=== PATIENT | female | born 1970 | race Caucasian/White ===

== ENCOUNTER → 2019-01-05 | Outpatient (CLI) | payer MEDICAID ==
--- NOTE | 2019-01-06 10:45 | Diagnostic Imaging Report ---
Indication: Routine screening. Comparison is made with prior mammograms from 12/21/2017 and 10/19/2016. 2-D and 3-D bilateral screening mammography was performed with CAD. Scattered fibroglandular densities are identified bilaterally. Bilateral breast implants are noted. Biopsy clip left breast is again seen. Nodular density medial left breast lung implant is stable. Overall parenchymal pattern is stable. No new mass or malignant- appearing microcalcifications are seen. Axillae are unremarkable. Impression: BI-RADS category 2 No mammographic features suspicious for malignancy are identified. ACR BI-RADS Category 2: Benign findings. Result letter will be mailed to the patient. Note: At least 10% of breast cancer is not imaged by mammography. Dictated by: Dictated on workstation # [id number]
== END ==
LOC: RAD 14:58
PROVIDERS: ATTEND Nurse Practitioner
DX: Z12.31 Encounter for screening mammogram for malignant neoplasm of breast (principal); Z01.419 Encounter for gynecological examination (general) (routine) without abnormal findings; E66.3 Overweight; Z68.25 Body mass index [BMI] 25.0-25.9, adult
CPT/HCPCS: 77067

== ENCOUNTER → 2020-04-02 | Outpatient (CLI) | payer BC, MEDICAID, OTHER ==
--- NOTE | 2020-04-02 17:02 | Diagnostic Imaging Report ---
INDICATION: Routine screening. COMPARISON: 01/05/2019 and 12/21/2017. TECHNIQUE: 2D and 3D bilateral screening mammography was performed with CAD. Both breasts are heterogeneously dense, limiting the sensitivity of mammography. Bilateral breast implants are noted. The implant contours appear stable. A biopsy clip in the left breast is again noted. The parenchymal pattern appears stable. No mass or malignant appearing microcalcifications are seen. The axillae are unremarkable. IMPRESSION: No mammographic features suspicious for malignancy are identified. ACR BI-RADS Category 2: Benign findings. Result letter will be mailed to the patient. Note: At least 10% of breast cancer is not imaged by mammography. Dictated by: Dictated on workstation # [id number]
== END ==
LOC: RAD 14:04
PROVIDERS: ATTEND Nurse Practitioner
DX: Z12.31 Encounter for screening mammogram for malignant neoplasm of breast (principal)
CPT/HCPCS: 77063; 77067

== ENCOUNTER 2020-07-19 23:23 | Observation (INO) | payer OTHER ==
[~2020-07-19] VITALS: Ht 172.7 cm; Wt 75.0 kg
[2020-07-19] MEDS ORDERED: NS IV 1000 ML 1,000 ML IV SCH (23:47)
[2020-07-19 23:54] LABS: BASOPHILS % (AUTO) 1 % (0-10); EOSINOPHILS # (AUTO) 0.2 10^3/uL (0.0-0.3); EOSINOPHILS % (AUTO) 4 % (0-10); HEMATOCRIT 37 % (35-52); HEMOGLOBIN 12.4 g/dL (11.5-16.0); LYMPHOCYTES # (AUTO) 2.8 10^3/uL (1.0-4.0); LYMPHOCYTES % (AUTO) 47 % (12-44); MEAN CORPUSCULAR HEMOGLOBIN 33 pg (25-34); MEAN CORPUSCULAR HGB CONC 34 g/dL (32-36); MEAN CORPUSCULAR VOLUME 97 fL (80-99); MEAN PLATELET VOLUME 10.5 fL (9.0-12.2); MONOCYTES # (AUTO) 0.5 10^3/uL (0.0-1.0); MONOCYTES % (AUTO) 9 % (0-12); NEUTROPHILS # (AUTO) 2.4 10^3/uL (1.8-7.8); NEUTROPHILS % (AUTO) 40 % (42-75); PLATELET COUNT 234 10^3/uL (130-400)
[2020-07-19 23:55] LABS: ALBUMIN 4.7 GM/DL (3.2-4.5); CHLORIDE 102 MMOL/L (98-107); POTASSIUM 2.9 MMOL/L (3.6-5.0); SODIUM 137 MMOL/L (135-145)
[2020-07-19 23:57] LABS: CALCIUM 8.5 MG/DL (8.5-10.1)
[2020-07-19 23:58] LABS: GLUCOSE 114 MG/DL (70-105); INR 0.8 (0.8-1.4); PROTHROMBIN TIME PATIENT 11.9 SEC (12.2-14.7)
[2020-07-19 23:59] LABS: CARBON DIOXIDE 19 MMOL/L (21-32)
[2020-07-20] LABS: BILIRUBIN,TOTAL 0.2 MG/DL (0.1-1.0)
[2020-07-20] MEDS ORDERED: TETANUS,DIPTH,PERTUSS P/F (BOOSTRIX) 0.5 ML VIAL IM ONE
[2020-07-20] MEDS ORDERED: ONDANSETRON 4 MG/2 ML (SDV) Z0FRAN IVP ONE
[2020-07-20 00:01] LABS: ALKALINE PHOSPHATASE 54 U/L (40-136)
[2020-07-20 00:02] LABS: CREATININE SERUM 0.84 MG/DL (0.60-1.30)
[2020-07-20 00:03] LABS: BUN/CREATININE RATIO 11; GFR ESTIMATED > 60
[2020-07-20 00:05] LABS: ALANINE AMINOTRANSFERASE 19 U/L (0-55)
[2020-07-20] MEDS ORDERED: 1/2 NS W/KCL 20 MEQ/L 1,000 ML IV SCH (00:15)
[2020-07-20] MEDS ORDERED: LORazepam INJ 2 MG/ML (ATIVAN) VIAL IVP ONE (00:30)
[2020-07-20 01:06] LABS: AMPHETAMINE SCREEN, URINE NEGATIVE (NEGATIVE); BARBITURATE SCREEN URINE NEGATIVE (NEGATIVE); BENZODIAZEPINES SCREEN URINE NEGATIVE (NEGATIVE); CANNABINOID SCREEN, URINE NEGATIVE (NEGATIVE); COCAINE SCREEN URINE NEGATIVE (NEGATIVE); METHADONE STAT NEGATIVE (NEGATIVE); METHAMPHETAMINE SCREEN URINE S NEGATIVE (NEGATIVE); OPIATE SCREEN URINE NEGATIVE (NEGATIVE); OXYCODONE STAT NEGATIVE (NEGATIVE); PROPOXYPHENE STAT NEGATIVE (NEGATIVE); TRICYCLIC ANTIDEPRESSANTS SCRE NEGATIVE (NEGATIVE)
[2020-07-20] MEDS ORDERED: AMMONIA INHALATION 0.33 ML AMP ONE (01:10)
--- NOTE | 2020-07-20 01:41 | ED General ---
General Chief Complaint: Trauma-Non Activation Stated Complaint: FALL,HEAD LAC Nursing Triage Note: REPORT FROM DAUGHTER STATES PATIENT WAS FOUND OUTSIDE THE [address] [place] [address] AND IT APPEARED SHE HAD FALLEN HITTING HER HEAD ON THE LEFT EYEBROW. PATIENT WAS NOT CONCIOUS WHEN FOUND. EMS WAS CALLED AND THEN DECLINED. PATIENT ARRIVES POV PER DAUGHTER. BROUGHT BACK TO ROOM 6 IN A WHEELCHAIR. Nursing Sepsis Screen: No Definite Risk Exam Limitations: Intoxication (PT IS VERY CONFUSED, APPEARS INTOXICATED AND IS UNABLE TO GIVE ANY INFORMATION) History of Present Illness Date Seen by Provider: Jul 19, 2020 Time Seen by Provider: 23:40 Initial Comments PT ARRIVES VIA POV--DAUGHTER BROUGHT HER HERE--BROUGHT TO ROOM IN WHEELCHAIR--PT IS UNABLE TO STAND ON HER OWN PT WAS FOUND UNCONSCIOUS, LAYING OUTSIDE OF LOCAL BAR. IS UNKNOWN HOW LONG SHE HAD BEEN LAYING THERE, AND THERE WERE NO WITNESSES TO THE INCIDENT PT WAS WAKENED BY BYSTANDERS AT SOME POINT, AND EMS WAS CALLED TO THE SCENE, BUT PT REFUSED TRANSPORT. DAUGHTER THEN BROUGHT HER HERE BY POV PT HAS REPORTEDLY BEEN DRINKING HEAVILY, BUT IS UNKNOWN HOW MUCH SHE HAS HAD TO DRINK PT HAS LACERATION TO LEFT BROW AREA, AND IS BELIEVED SHE FELL AND HIT HER HEAD PT IS CONFUSED, AND SPEECH IS VERY HEAVILY SLURRED AND NON-SENSICAL. PT IS UNABLE TO FOLLOW ANY COMMANDS, OR ANSWER ANY QUESTIONS RELIABLY. NO OTHER INFORMATION IS OBTAINABLE. CERVICAL COLLAR IMMEDIATELY PLACED ON PT Location Injury Occurred: [address] [place] [address] Allergies and Home Medications Allergies Coded Allergies: Sulfa (Sulfonamide Antibiotics) (Verified Allergy, Unknown, 07/19/20) Patient Home Medication List Home Medication List Reviewed: Yes Review of Systems Review of Systems Constitutional: other (PT UNABLE TO ANSWER ANY QUESTIONS) Past Mqeogds-Vcggkz-Sygiiz Hx Past Med/Social Hx: Reviewed and Corrections made Patient Social History Alcohol Use: Regular Use Recreational Drug Use: No Smoking Status: Current Everyday Smoker Type Used: Cigarettes 2nd Hand Smoke Exposure: No Recent Foreign Travel: No Contact w/Someone Who Travel: No Recent Infectious Disease Expo: No Recent Hopitalizations: No Immunizations Up To Date Date of Influenza Vaccine: Jun 18, 2020 Seasonal Allergies Seasonal Allergies: No Past Medical History Surgeries: No Respiratory: No Cardiac: No Neurological: No : No CRTS History: Menopausal Genitourinary: No Gastrointestinal: No Musculoskeletal: No Endocrine: No HEENT: No Cancer: No Psychosocial: No Integumentary: No Blood Disorders: No Physical Exam Vital Signs Vital Signs - First Documented 07/19/20 07/20/20 07/20/20 23:27 02:17 03:00 Temp 35.8 Pulse 81 Resp 20 B/P (MAP) 147/94 (111) Pulse Ox 100 O2 Delivery OxyMask O2 Flow Rate 15.00 Capillary Refill : Less Than 3 Seconds Height, Weight, BMI Height: 5'8.00" Weight: 150lbs. oz. 68.743618fn; 24.00 BMI Method: General Appearance: Other (REEKS OF ETOH, SPEECH HEAVILY SLURRED, TALKING NON- STOP BUT IS MOSTLY NON-SENSICAL OR NON-RELEVANT, REPEATING QUESTIONS. PT IS DISORIENTED TO PLACE, TIME, SITUATION. ) HEENT: PERRL/EOMI, Other (HAS SMALL SUPERFICIAL LACERATION TO LEFT LATERAL BROW AREA, WITH MILD BRUISING AND SWELLING. HAS VERY MINOR ABRASION TO PINNA OF LEFT EAR. NO BLEEDING FROM NOSE OR MOUTH. NO EVIDENCE OF DENTAL INJURY. ) Neck: Normal Inspection Respiratory: Chest Non Tender, Normal Breath Sounds, No Accessory Muscle Use, No Respiratory Distress Cardiovascular: Regular Rate, Rhythm, No Edema, No JVD, No Murmur, Normal Peripheral Pulses Gastrointestinal: Non Tender, Soft Back: No CVA Tenderness, No Vertebral Tenderness Extremity: Normal Inspection, Normal Range of Motion, Non Tender, No Pedal Edema Neurologic/Psychiatric: Other (APPEARS TO BE INTOXICATED, PT IS CONFUSED, SPEECH IS HEAVILY SLURRED, REPEATING QUESTIONS, ORIENTED TO PERSON ONLY. PT IS UNABLE TO ANSWER MOST QUESTIONS AND IS UNABLE TO FOLLOW ANY COMMANDS, PT IS BELLIGERENT AND VERY UNCOOPERATIVE AND COMBATIVE AT TIMES. PT REFUSES TO STAY ON THE ER CART, TRYING TO LEAVE. ) Skin: Normal Color, Cool, Ecchymosis, Other (ABRASIONS/SUPERFICIAL LACERATIONS NOTED ABOVE) Progress/Results/Core Measures Suspected Sepsis Recent Fever Within 48 Hours: No Infection Criteria Present: None New/Unexplained Altered Menta: No Sepsis Screen: No Definite Risk SIRS Temperature: Pulse: 81 Respiratory Rate: 20 Laboratory Tests 07/19/20 23:37: White Blood Count 6.0 07/20/20 03:10: White Blood Count 4.0L Blood Pressure 147 /94 Mean: 111 Laboratory Tests 07/19/20 23:37: Creatinine 0.84, INR Comment 0.8, Platelet Count 234, Total Bilirubin 0.2 07/20/20 03:10: Creatinine 0.82, INR Comment 0.9, Platelet Count 230, Total Bilirubin 0.2 Results/Orders Lab Results Laboratory Tests Test 07/19/20 00:45 07/19/20 23:37 07/20/20 03:10 Range/Units Urine Opiates Screen NEGATIVE NEGATIVE Urine Oxycodone Screen NEGATIVE NEGATIVE Urine Methadone Screen NEGATIVE NEGATIVE Urine Propoxyphene Screen NEGATIVE NEGATIVE Urine Barbiturates Screen NEGATIVE NEGATIVE Ur Tricyclic Antidepressants Screen NEGATIVE NEGATIVE Urine Phencyclidine Screen NEGATIVE NEGATIVE Urine Amphetamines Screen NEGATIVE NEGATIVE Urine Methamphetamines Screen NEGATIVE NEGATIVE Urine Benzodiazepines Screen NEGATIVE NEGATIVE Urine Cocaine Screen NEGATIVE NEGATIVE Urine Cannabinoids Screen NEGATIVE NEGATIVE White Blood Count 6.0 4.0 L 4.3-11.0 10^3/uL Red Blood Count 3.80 4.01 3.80-5.11 10^6/uL Hemoglobin 12.4 13.1 11.5-16.0 g/dL Hematocrit 37 40 35-52 % Mean Corpuscular Volume 97 99 80-99 fL Mean Corpuscular Hemoglobin 33 33 25-34 pg Mean Corpuscular Hemoglobin Concent 34 33 32-36 g/dL Red Cell Distribution Width 12.7 12.9 10.0-14.5 % Platelet Count 234 230 130-400 10^3/uL Mean Platelet Volume 10.5 11.3 9.0-12.2 fL Immature Granulocyte % (Auto) 0 0 % Neutrophils (%) (Auto) 40 L 56 42-75 % Lymphocytes (%) (Auto) 47 H 35 12-44 % Monocytes (%) (Auto) 9 5 0-12 % Eosinophils (%) (Auto) 4 2 0-10 % Basophils (%) (Auto) 1 1 0-10 % Neutrophils # (Auto) 2.4 2.2 1.8-7.8 10^3/uL Lymphocytes # (Auto) 2.8 1.4 1.0-4.0 10^3/uL Monocytes # (Auto) 0.5 0.2 0.0-1.0 10^3/uL Eosinophils # (Auto) 0.2 0.1 0.0-0.3 10^3/uL Basophils # (Auto) 0.0 0.0 0.0-0.1 10^3/uL Immature Granulocyte # (Auto) 0.0 0.0 0.0-0.1 10^3/uL Prothrombin Time 11.9 L 12.5 12.2-14.7 SEC INR Comment 0.8 0.9 0.8-1.4 Activated Partial Thromboplast Time 29 28 24-35 SEC Sodium Level 137 143 135-145 MMOL/L Potassium Level 2.9 L 4.7 3.6-5.0 MMOL/L Chloride Level 102 109 H 98-107 MMOL/L Carbon Dioxide Level 19 L 19 L 21-32 MMOL/L Anion Gap 16 H 15 H 5-14 MMOL/L Blood Urea Nitrogen 9 9 7-18 MG/DL Creatinine 0.84 0.82 0.60-1.30 MG/DL Estimat Glomerular Filtration Rate > 60 > 60 BUN/Creatinine Ratio 11 11 Glucose Level 114 H 108 H 70-105 MG/DL Calcium Level 8.5 8.0 L 8.5-10.1 MG/DL Corrected Calcium 7.7 L 8.5-10.1 MG/DL Total Bilirubin 0.2 0.2 0.1-1.0 MG/DL Aspartate Amino Transf (AST/SGOT) 24 40 H 5-34 U/L Alanine Aminotransferase (ALT/SGPT) 19 19 0-55 U/L Alkaline Phosphatase 54 52 40-136 U/L Total Protein 8.0 8.2 6.4-8.2 GM/DL Albumin 4.7 H 4.4 3.2-4.5 GM/DL Serum Alcohol 367 *H 311 *H <10 MG/DL My Orders Orders - WARREN PRETTY DO Ct Head/Face/Cervical Wo (07/19/20 23:41) Ondansetron Injection (Zofran Injectio (07/20/20 00:00) Alcohol (07/19/20 23:47) Cbc With Automated Diff (07/19/20 23:47) Comprehensive Metabolic Panel (07/19/20 23:47) Drug Screen Stat (Urine) (07/19/20 23:47) Protime With Inr (07/19/20 23:47) Partial Thromboplastin Time (07/19/20 23:47) Ed Iv/Invasive Line Start (07/19/20 23:47) Ns Iv 1000 Ml (Sodium Chloride 0.9%) (07/19/20 23:47) Dipht,Pertuss(Acell),Tet Adult (Boostrix (07/20/20 00:00) Chest 1 View, Ap/Pa Only (07/20/20 00:01) Pelvis (07/20/20 00:01) 1/2 Ns W/Kcl 20 Meq/L (0.45% Sodium Chlo (07/20/20 00:15) Lorazepam Injection (Ativan Injection) (07/20/20 00:30) Ammonia Inhalation (Ammonia Inhalation) (07/20/20 01:10) Medications Given in ED Current Medications Medications Dose Ordered Sig/Bianca Route Start Time Stop Time Status Last Admin Dose Admin Diphtheria/ Tetanus/Acell Pertussis 0.5 ml ONCE ONCE IM 07/20/20 00:00 07/20/20 00:01 DC 07/19/20 23:56 0.5 ML Lorazepam 2 mg ONCE ONCE IVP 07/20/20 00:30 07/20/20 00:31 DC 07/20/20 00:29 2 MG Ondansetron HCl 4 mg ONCE ONCE IVP 07/20/20 00:00 07/20/20 00:01 DC 07/19/20 23:55 4 MG Vital Signs/I&O 07/19/20 07/20/20 07/20/20 07/20/20 23:27 02:17 02:55 03:00 Temp 35.8 36.4 36.5 Pulse 81 73 80 80 Resp 20 13 16 B/P (MAP) 147/94 (111) 119/77 (111) 123/75 Pulse Ox 100 100 100 O2 Delivery OxyMask O2 Flow Rate 15.00 3.00 07/20/20 07/20/20 07/20/20 03:52 04:52 05:55 Temp 35.7 36.3 36.4 Pulse 64 72 64 Resp 14 14 14 B/P (MAP) 103/64 106/68 102/64 Pulse Ox 100 100 100 O2 Delivery OxyMask OxyMask OxyMask O2 Flow Rate 3.00 3.00 3.00 Capillary Refill : Less Than 3 Seconds Blood Pressure Mean: 111 Progress Note : Progress Note PT IS VERY COOL ON ARRIVAL. GIVEN WARM BLANKETS AND WARM IV FLUIDS PT WITH INCREASING AGITATION, BEING COMBATIVE AND UNCOOPERATIVE, WILL NOT STAY ON THE BED, STILL VERY CONFUSED, REPEATING HERSELF. GIVEN ATIVAN WITH MUCH IMPROVEMENT IN THIS BEHAVIOR. PT THEN SLEPT, WITH HEAVY SNORING. ABLE TO ROUSE WITH VERBAL AND TACTILE STIMULI PT DID HAVE SOME EPISODES OF HYPOXIA --NASAL TRUMPET AND OXIMASK APPLIED WITH O2 SATS 98-100% FOR REMAINDER OF ER STAY. Diagnostic Imaging Comments CXR--NO ACUTE PROCESS, PENDING RADIOLOGIST REVIEW PELVIS XRAY--NO ACUTE PROCESS, PENDING RADIOLOGIST REVIEW CT HEAD/MAXILLOFACIAL/CERVICAL SPINE--LEFT PERIORBITAL SOFT TISSUE SWELLING, OTHERWISE NO ACUTE PROCESS, PER [facility] VIA FAX AT 0052 Reviewed: Reviewed by Me Departure Communication (Admissions) 0112--SPOKE WITH DR. PEREZ, TRAUMA SURGEON, ACCEPTS PT FOR ADMIT. ADVISES TO REMOVE C-COLLAR NOW. HE ADVISES THAT PT MAY BE ADMITTED TO THE MEDICAL FLOOR, IF NEEDED, DUE TO NUMBER OF CRITICAL PATIENTS IN ICU/LIMITED NUMBER OF ICU BEDS. 0135--DISCUSSED WITH SAMPLE STEAMER, HE ADVISES THAT PT CAN GO TO STEP DOWN UNIT / 5TH FLOOR. Impression Primary Impression: UNWITNESSED FALL WITH LOSS OF CONSCIOUSNESS OF UNKNOWN DURATION Additional Impressions: Altered mental status Alcohol intoxication Hypokalemia Cnzbpmyxqw-npxjpzlfn-xqshdng (DPT) vaccination administered at current visit MILD HYPOTHERMIA Disposition: ADMITTED INPATIENT Condition: Stable Admissions Decision to Admit Reason: Admit from ER (Trauma) Decision to Admit/Date: Jul 20, 2020 Time/Decision to Admit Time: 01:10 Departure-Patient Inst. Referrals: NO,LOCAL PHYSICIAN (PCP/Family) Primary Care Physician WARREN PRETTY DO Jul 20, 2020 01:41
[2020-07-20 02:17] VITALS: BP 119/77
[2020-07-20] MEDS ORDERED: LORazepam INJ 2 MG/ML (ATIVAN) VIAL IM/IV PRN (02:30)
[2020-07-20] MEDS ORDERED: ONDANSETRON 4 MG/2 ML (SDV) Z0FRAN IVP PRN (02:30)
[2020-07-20] MEDS ORDERED: LORazepam 1 MG (ATIVAN) TAB PO PRN (02:30)
[2020-07-20] MEDS ORDERED: D5 1/2 NS 1000 ML IV SOLUTION 1,000 ML IV PRN (02:30)
[2020-07-20] MEDS ORDERED: ONDANSETRON 4 MG (ZOFRAN) ORAL DISSOLVE TAB SL PRN (02:30)
[2020-07-20] MEDS ORDERED: ANTACID SUSP 30 ML UDC (MYLANTA) PO PRN (02:30)
[2020-07-20] MEDS ORDERED: LORazepam INJ 2 MG/ML (ATIVAN) VIAL IV PRN (02:30)
[2020-07-20] MEDS ORDERED: 1/2 NS IV SOLUTION 1,000 ML IV PRN (02:30)
[2020-07-20] MEDS ORDERED: LORazepam INJ 2 MG/ML (ATIVAN) VIAL IVP PRN (02:30)
[2020-07-20] MEDS ORDERED: D5 1/2 NS W/KCL 20 MEQ/L 1,000 ML IV SCH (02:30)
[2020-07-20] MEDS ORDERED: SENNA W/DOCUSATE (SENOKOT S) TABLET PO PRN (02:30)
[2020-07-20 04:09] LABS: INR 0.9 (0.8-1.4); PROTHROMBIN TIME PATIENT 12.5 SEC (12.2-14.7)
[2020-07-20 04:26] LABS: BASOPHILS % (AUTO) 1 % (0-10); EOSINOPHILS # (AUTO) 0.1 10^3/uL (0.0-0.3); EOSINOPHILS % (AUTO) 2 % (0-10); HEMATOCRIT 40 % (35-52); HEMOGLOBIN 13.1 g/dL (11.5-16.0); LYMPHOCYTES # (AUTO) 1.4 10^3/uL (1.0-4.0); LYMPHOCYTES % (AUTO) 35 % (12-44); MEAN CORPUSCULAR HEMOGLOBIN 33 pg (25-34); MEAN CORPUSCULAR HGB CONC 33 g/dL (32-36); MEAN CORPUSCULAR VOLUME 99 fL (80-99); MEAN PLATELET VOLUME 11.3 fL (9.0-12.2); MONOCYTES # (AUTO) 0.2 10^3/uL (0.0-1.0); MONOCYTES % (AUTO) 5 % (0-12); NEUTROPHILS # (AUTO) 2.2 10^3/uL (1.8-7.8); NEUTROPHILS % (AUTO) 56 % (42-75); PLATELET COUNT 230 10^3/uL (130-400)
[2020-07-20 04:38] LABS: ALBUMIN 4.4 GM/DL (3.2-4.5); CHLORIDE 109 MMOL/L (98-107); POTASSIUM 4.7 MMOL/L (3.6-5.0); SODIUM 143 MMOL/L (135-145)
[2020-07-20 04:40] LABS: GLUCOSE 108 MG/DL (70-105)
[2020-07-20 04:41] LABS: TOTAL PROTEIN 8.2 GM/DL (6.4-8.2)
[2020-07-20 04:42] LABS: BILIRUBIN,TOTAL 0.2 MG/DL (0.1-1.0); CARBON DIOXIDE 19 MMOL/L (21-32)
[2020-07-20 04:44] LABS: ALKALINE PHOSPHATASE 52 U/L (40-136); CREATININE SERUM 0.82 MG/DL (0.60-1.30); GFR ESTIMATED > 60
[2020-07-20 04:45] LABS: BUN/CREATININE RATIO 11
[2020-07-20 04:47] LABS: ALANINE AMINOTRANSFERASE 19 U/L (0-55)
--- NOTE | 2020-07-20 08:03 | Consultation - Surgery ---
ABDIEL DE LA CRUZ MED STUDENT 07/20/20 0803: History of Present Illness History of Present Illness Patient Consulted On(rusty/time) 07/20/20 07:57 Date Seen by Provider: Jul 20, 2020 Time Seen by Provider: 08:00 History of Present Illness Surgery consulted for head injury w/ LOC HPI per ED: REPORT FROM DAUGHTER STATES PATIENT WAS FOUND OUTSIDE THE [facility] BAR AND IT APPEARED SHE HAD FALLEN HITTING HER HEAD ON THE LEFT EYEBROW. PATIENT WAS NOT CONCIOUS WHEN FOUND. EMS WAS CALLED AND THEN DECLINED. PATIENT ARRIVES POV PER DAUGHTER. BROUGHT BACK TO ROOM 6 IN A WHEELCHAIR. Exam Limitations: Intoxication (PT IS VERY CONFUSED, APPEARS INTOXICATED AND IS UNABLE TO GIVE ANY INFORMATION) PT ARRIVES VIA POV--DAUGHTER BROUGHT HER HERE--BROUGHT TO ROOM IN WHEELCHAIR--PT IS UNABLE TO STAND ON HER OWN PT WAS FOUND UNCONSCIOUS, LAYING OUTSIDE OF LOCAL BAR. IS UNKNOWN HOW LONG SHE HAD BEEN LAYING THERE, AND THERE WERE NO WITNESSES TO THE INCIDENT PT WAS WAKENED BY BYSTANDERS AT SOME POINT, AND EMS WAS CALLED TO THE SCENE, BUT PT REFUSED TRANSPORT. DAUGHTER THEN BROUGHT HER HERE BY POV PT HAS REPORTEDLY BEEN DRINKING HEAVILY, BUT IS UNKNOWN HOW MUCH SHE HAS HAD TO DRINK PT HAS LACERATION TO LEFT BROW AREA, AND IS BELIEVED SHE FELL AND HIT HER HEAD PT IS CONFUSED, AND SPEECH IS VERY HEAVILY SLURRED AND NON-SENSICAL. PT IS UNABLE TO FOLLOW ANY COMMANDS, OR ANSWER ANY QUESTIONS RELIABLY. When I spoke to the pt this morning, she was well response and had no difficulties answer questions. Pt doesn't remember what happened last night except for what she was told. Pt states she had a few too many drinks last night and doesn't remember hitting her head. Pt remembers coming to ED. Pt denies previous occurrences of hitting head or LOC. Pt denies feeling pain on head, PRYOR, or pain elsewhere presently. Pt denies hangover presently and feels pretty good. Pt had CT and X-rays of Head and pelvis last night around midnight. Pt had juice and jello to drink this morning but denies N/V. Pt denies having gone to the restroom since being admitted. Pt is aware of laceration above eyebrow but doesn't know what was done to tx it. Looking over pt, she has a small cut w/ liquid glue above L eyebrow and some dried blood. Pt has some dark discoloration below L eye but unknown whether it's mascara or a small bruise. Pt had imaging of head and pelvis, results pending. Pt received ativan in ED. Allergies and Home Medications Allergies Coded Allergies: Sulfa (Sulfonamide Antibiotics) (Verified Allergy, Unknown, 07/19/20) Past Cjhawkp-Sqwryi-Hfumqu Hx Patient Social History Alcohol Use: Regular Use (drinks 3/d wk w/ 3-5 beers per setting) Recreational Drug Use: No Smoking Status: Current Someday Smoker (only smokes when she drinks. 5 cigs/s etting) Type Used: Cigarettes 2nd Hand Smoke Exposure: No Recent Foreign Travel: No Contact w/Someone Who Travel: No Recent Infectious Disease Expo: No Recent Hopitalizations: No Physical Abuse Screen: No Sexual Abuse: No Immunizations Up To Date Date of Influenza Vaccine: Jun 19, 2020 Seasonal Allergies Seasonal Allergies: No Surgeries History of Surgeries: No Surgeries: Section (1 child) Respiratory History of Respiratory Disorde: No Cardiovascular History of Cardiac Disorders: No Neurological History of Neurological Disord: No Reproductive System : No [employer]MENT REPAIRER History: Menopausal Genitourinary History of Genitourinary Disor: No Gastrointestinal History of Gastrointestinal Di: No Musculoskeletal History of Musculoskeletal Dis: No Endocrine History of Endocrine Disorders: No HEENT History of HEENT Disorders: No Cancer History of Cancer: No Psychosocial History of Psychiatric Problem: No Integumentary History of Skin or Integumenta: No Blood Transfusions History of Blood Disorders: No Family Medical History Significant Family History: Cancer (mom - breast cancer), Stroke (dad) Review of Systems-General Constitutional: No chills, No diaphoresis, No dizziness, No fever, No weakness, No weight gain, No weight loss EENTM: No hearing loss, No ear pain, No blurred vision, No double vision, No e ye pain, No vision loss, No mouth pain, No mouth swelling, No epistaxis, No nose pain, No throat pain, No throat swelling Respiratory: No cough, No short of breath, No wheezing Cardiovascular: No chest pain Gastrointestinal: No abdominal pain, No nausea, No vomiting Musculoskeletal: No muscle pain, No muscle twitching, No neck pain Skin: other (cut on L eyebrow) Psychiatric/Neurological: Denies Anxiety, Denies Depressed, Denies Headache, Denies Weakness Physical Exam-General Problems Physical Exam Vital Signs Vital Signs - First Documented 07/19/20 07/20/20 23:27 02:17 Temp 35.8 Pulse 81 Resp 20 B/P (MAP) 147/94 (111) Pulse Ox 100 O2 Flow Rate 15.00 Capillary Refill : Less Than 3 Seconds General Appearance: WD/WN, mild distress (pt is slightly distress about why she's admitted and wants to go home) HEENT: PERRL/EOMI, pharynx normal Neck: non-tender, supple Respiratory: chest non-tender, lungs clear, normal breath sounds, no respiratory distress, no accessory muscle use Cardiovascular: regular rate, rhythm, no murmur Gastrointestinal: non tender, soft Extremities: non-tender, no pedal edema, no calf tenderness, normal capillary refill Neurologic/Psychiatric: alert, normal mood/affect, oriented x 3 Skin: other (small cut w/ liquid bandaid above L eyebrow. some dried blood. possible small bruise under L eye.) Data Review Labs Laboratory Tests 07/19/20 23:37: White Blood Count 6.0, Red Blood Count 3.80, Hemoglobin 12.4, Hematocrit 37, Mean Corpuscular Volume 97, Mean Corpuscular Hemoglobin 33, Mean Corpuscular Hemoglobin Concent 34, Red Cell Distribution Width 12.7, Platelet Count 234, Mean Platelet Volume 10.5, Immature Granulocyte % (Auto) 0, Neutrophils (%) ( Auto) 40L, Lymphocytes (%) (Auto) 47H, Monocytes (%) (Auto) 9, Eosinophils (%) (Auto) 4, Basophils (%) (Auto) 1, Neutrophils # (Auto) 2.4, Lymphocytes # (Auto) 2.8, Monocytes # (Auto) 0.5, Eosinophils # (Auto) 0.2, Basophils # (Auto) 0.0, Immature Granulocyte # (Auto) 0.0, Prothrombin Time 11.9L, INR Comment 0.8, Activated Partial Thromboplast Time 29, Sodium Level 137, Potassium Level 2.9L, Chloride Level 102, Carbon Dioxide Level 19L, Anion Gap 16H, Blood Urea Nitrogen 9, Creatinine 0.84, Estimat Glomerular Filtration Rate > 60, BUN/Creatinine Ratio 11, Glucose Level 114H, Calcium Level 8.5, Corrected Calcium , Total Bilir ubin 0.2, Aspartate Amino Transf (AST/SGOT) 24, Alanine Aminotransferase (ALT/SGPT) 19, Alkaline Phosphatase 54, Total Protein 8.0, Albumin 4.7H, Serum Alcohol 367*H 07/20/20 03:10: White Blood Count 4.0L, Red Blood Count 4.01, Hemoglobin 13.1, Hematocrit 40, Mean Corpuscular Volume 99, Mean Corpuscular Hemoglobin 33, Mean Corpuscular Hemoglobin Concent 33, Red Cell Distribution Width 12.9, Platelet Count 230, Mean Platelet Volume 11.3, Immature Granulocyte % (Auto) 0, Neutrophils (%) (Auto) 56, Lymphocytes (%) (Auto) 35, Monocytes (%) (Auto) 5, Eosinophils (%) (Auto) 2, Basophils (%) (Auto) 1, Neutrophils # (Auto) 2.2, Lymphocytes # (Auto) 1.4, Monocytes # (Auto) 0.2, Eosinophils # (Auto) 0.1, Basophils # (Auto) 0.0, Immature Granulocyte # (Auto) 0.0, Prothrombin Time 12.5, INR Comment 0.9, Activated Partial Thromboplast Time 28, Sodium Level 143, Potassium Level 4.7, Chloride Level 109H, Carbon Dioxide Level 19L, Anion Gap 15H, Blood Urea Nitrogen 9, Creatinine 0.82, Estimat Glomerular Filtration Rate > 60, BUN/Creatinine Ratio 11, Glucose Level 108H, Calcium Level 8.0L, Corrected Calcium 7.7L, Total Bilirubin 0.2, Aspartate Amino Transf (AST/SGOT) 40H, Alanine Aminotransferase (ALT/SGPT) 19, Alkaline Phosphatase 52, Total Protein 8.2, Albumin 4.4, Serum Alcohol 311*H Assessment/Plan Assessment/Plan Assessment/Plan Head Injury w/ LOC - wait for imaging results. switch from liquid diet to solid diet if tolerated. start ambulation. if unremarkable results, can d/c home. Clinical Quality Measures DVT/VTE Risk/Contraindication: Risk Factor Score Per Nursin RFS Level Per Nursing on Admit: 2=Moderate NORA PEREZ DO 07/20/20 1018: History of Present Illness History of Present Illness Time Seen by Provider: 09:41 History of Present Illness When I spoke to pt she was A&Ox3 and denied PRYOR. Wants to go home. Allergies and Home Medications Allergies Coded Allergies: Sulfa (Sulfonamide Antibiotics) (Verified Allergy, Unknown, 07/19/20) Patient Home Medication List Home Medication List Reviewed: Yes Past Cnzqlud-Iwdmbx-Gnlrfy Hx Patient Social History Alcohol Use: Regular Use (drinks 3/d wk w/ 3-5 beers per setting) Smoking Status: Current Someday Smoker (only smokes when she drinks. 5 cigs/setting) Surgeries History of Surgeries: Yes Surgeries: Section (1 child) Respiratory History of Respiratory Disorde: No Cardiovascular History of Cardiac Disorders: No Neurological History of Neurological Disord: No Genitourinary History of Genitourinary Disor: No Gastrointestinal History of Gastrointestinal Di: No Musculoskeletal History of Musculoskeletal Dis: No Endocrine History of Endocrine Disorders: No HEENT History of HEENT Disorders: No Cancer History of Cancer: No Psychosocial History of Psychiatric Problem: No Integumentary History of Skin or Integumenta: No Family Medical History Significant Family History: Cancer (mom - breast cancer), Stroke (dad) Review of Systems-General Constitutional: No chills, No diaphoresis, No dizziness EENTM: No hearing loss, No ear pain, No blurred vision, No double vision, No mouth pain, No mouth swelling, No epistaxis Respiratory: No cough, No short of breath, No wheezing Gastrointestinal: No abdominal pain, No nausea, No vomiting Musculoskeletal: No muscle pain, No muscle twitching, No other Skin: No change in color, No change in hair/nails; other (cut on L eyebrow) Psychiatric/Neurological: Denies Anxiety, Denies Depressed, Denies Headache, Denies Weakness Physical Exam-General Problems Physical Exam General Appearance: WD/WN, no apparent distress Eyes: Bilateral Eye PERRL, Bilateral Eye EOMI HEENT: pharynx normal; No scleral icterus (R), No scleral icterus (L) Neck: non-tender, supple Respiratory: lungs clear, normal breath sounds, no respiratory distress, no accessory muscle use Cardiovascular: regular rate, rhythm, no murmur Gastrointestinal: non tender, soft, no organomegaly Back: no CVA tenderness, no vertebral tenderness Extremities: non-tender, no pedal edema, no calf tenderness, normal capillary refill Neurologic/Psychiatric: director oracle II-XII nml as tested, alert, normal mood/affect, oriented x 3 Skin: other (small cut w/ liquid bandaid above L eyebrow. some dried blood. po ssible small bruise under L eye.) Lymphatic: no adenopathy (neck, axilla or groin) Data Review Radiology Date of Exam:07/19/20 CT HEAD/FACE/CERVICAL WO PROCEDURE: CT head, face, and cervical spine without contrast. TECHNIQUE: Multiple contiguous axial images were obtained through the head, neck, and facial bones without the use of intravenous contrast. Sagittal and coronal reformations through the cervical spine and facial bones were also performed. Auto Exposure Controls were utilized during the CT exam to meet ALARA standards for radiation dose reduction. DATE: July 19, 2020. COMPARISON: None. INDICATION: 50-year-old female, laceration above the left eyebrow. Fall. Head, neck, and maxillofacial pain. FINDINGS: There is abnormal soft tissue swelling in the subcutaneous tissues lateral to the left orbit. The globes appear grossly intact. There is no retro-orbital hematoma. The temporomandibular joints are normally aligned. The mandible is intact. There is no identified nasal bone fracture. There is no otherwise identified maxillofacial bone fracture. The mastoid air cells and middle ears are well-aerated bilaterally. There is pneumatization of the petrous apices. The ventricles and cerebral spinal fluid spaces are of normal size and configuration for the patient's age. There is no mass effect or midline shift. There is no acute intracranial hemorrhage. There is no abnormal extra-axial fluid collection. There is no identified facet joint subluxation or dislocation. There are mild facet degenerative changes of the cervical spine. There is no asymmetric widening of the cervical disc spaces. There is no prominent prevertebral soft tissue swelling. There is mild disc height loss at C6-C7 posterior disc osteophyte complex. There is also a posterior disc osteophyte complex at C5-C6. CT is limited for assessment of disc pathology as well as additional nonbony causes of pathology in the spinal canal. 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 There is no identified acute fracture of the cervical spine. The visualized portions of the lung apices are clear. IMPRESSION: 1. Soft tissue swelling in the subcutaneous tissues lateral to the left orbit which could relate to contusion or hematoma. 2. Grossly intact globes. No retro-orbital hematoma. 3. No acute maxillofacial bone fracture. 4. No acute intracranial abnormality. 5. No acute posttraumatic abnormality of the cervical spine. 6. Multilevel disc and facet degenerative changes of the cervical spine. Dictated on workstation # [id number] Dict: 07/20/20830 Trans: 07/20/20839 CV [id number] Interpreted by: FRANSICO FLORES MD Assessment/Plan Assessment/Plan Assessment/Plan Traumatic Brain injury with LOC EtOH Abuse CT of head and C-spine was unremarkable and pt's blood alcohol is down; she can be d/c'd home with concussion protocol. Supervisory-Addendum Brief Verification & Attestation Participated in pt care: history, MDM, physical Personally performed: exam, history, MDM Care discussed with: Medical Student Procedures: n/a Verification and Attestation of Medical Student E/M Service A medical student performed and documented this service. I then reviewed and verified all information documented by the medical student and made modifications to such information, when appropriate. I personally performed a physical exam, medical decision making and then discussed any differences between the notes and made revisions as necessary to create one note. Nora Perez , 07/20/20 , 10:18 ABDIEL DE LA CRUZ MED STUDENT Jul 20, 2020 08:03 NORA PEREZ DO Jul 20, 2020 10:18
--- NOTE | 2020-07-20 08:23 | Diagnostic Imaging Report ---
EXAMINATION: Pelvis, single view. COMPARISON: None. HISTORY: 50-year-old female, pelvic pain. Fall. FINDINGS: The pubic symphysis and sacroiliac joints are normally aligned. The hips are not obviously dislocated. There is mild joint space loss of both hips. There is osteophyte formation, right greater than left. There is no identified acute fracture. There are disc degenerative changes at L4-L5. IMPRESSION: 1. No identified acute bony abnormality of the pelvis. Dictated by: Dictated on workstation # [id number]
--- NOTE | 2020-07-20 08:23 | Diagnostic Imaging Report ---
EXAMINATION: Chest radiograph, portable AP view. DATE: 07/20/2020 12:23 AM hours. INDICATION: 50-year-old female, fall. Chest pain. COMPARISON: None. FINDINGS: Heart size and mediastinal contours are unremarkable. There is no identified pneumothorax. There is no large pleural effusion. There is no identified focal airspace consolidation. There is no identified significantly displaced rib fracture. IMPRESSION: 1. No identified acute cardiopulmonary abnormality. Dictated by: Dictated on workstation # [id number]
--- NOTE | 2020-07-20 08:40 | Diagnostic Imaging Report ---
PROCEDURE: CT head, face, and cervical spine without contrast. TECHNIQUE: Multiple contiguous axial images were obtained through the head, neck, and facial bones without the use of intravenous contrast. Sagittal and coronal reformations through the cervical spine and facial bones were also performed. Auto Exposure Controls were utilized during the CT exam to meet ALARA standards for radiation dose reduction. DATE: July 19, 2020. COMPARISON: None. INDICATION: 50-year-old female, laceration above the left eyebrow. Fall. Head, neck, and maxillofacial pain. FINDINGS: There is abnormal soft tissue swelling in the subcutaneous tissues lateral to the left orbit. The globes appear grossly intact. There is no retro-orbital hematoma. The temporomandibular joints are normally aligned. The mandible is intact. There is no identified nasal bone fracture. There is no otherwise identified maxillofacial bone fracture. The mastoid air cells and middle ears are well-aerated bilaterally. There is pneumatization of the petrous apices. The ventricles and cerebral spinal fluid spaces are of normal size and configuration for the patient's age. There is no mass effect or midline shift. There is no acute intracranial hemorrhage. There is no abnormal extra-axial fluid collection. There is no identified facet joint subluxation or dislocation. There are mild facet degenerative changes of the cervical spine. There is no asymmetric widening of the cervical disc spaces. There is no prominent prevertebral soft tissue swelling. There is mild disc height loss at C6-C7 posterior disc osteophyte complex. There is also a posterior disc osteophyte complex at C5-C6. CT is limited for assessment of disc pathology as well as additional nonbony causes of pathology in the spinal canal. 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 There is no identified acute fracture of the cervical spine. The visualized portions of the lung apices are clear. IMPRESSION: 1. Soft tissue swelling in the subcutaneous tissues lateral to the left orbit which could relate to contusion or hematoma. 2. Grossly intact globes. No retro-orbital hematoma. 3. No acute maxillofacial bone fracture. 4. No acute intracranial abnormality. 5. No acute posttraumatic abnormality of the cervical spine. 6. Multilevel disc and facet degenerative changes of the cervical spine. Dictated by: Dictated on workstation # [id number]
[2020-07-20] MEDS ORDERED: THIAMINE INJECTION 100 MG, FOLIC ACID INJECTION 1 MG, MAGNESIUM SULFATE 2 GM, VITAMIN M... IV SCH ×5 (09:00)
--- NOTE | 2020-07-20 10:24 | Discharge Inst-Surgical ---
Discharge Inst-Surgical Depart Medication/Instructions New, Converted or Re-Newed RX: Other (No prescription needed, taking tylenol or motrin for pain) Patient Instructions Instructions: No strenuous activity. May shower in 24 hours or tub bath or soaking. Use incentive spirometer at home as directed. No Smoking Skin/Wound Care: May remove bandages in am. You need to leave the Dermabond on incision it will fall off on it's own. Symptoms to Report: Appetite Changes, Extremity Discoloration, Numbness/Tingling, Swelling Increased, Bleeding Excessive, Eyesight Changes, Pain Increased, Urine Color Change, Constipation(Persistent), Fever over 101 degree F, Pain/Pressure in chest, Urinating Difficulty, Cough Up/Vomit Blood, Heart Beat Irreg/Pounding, Pain/Pressure in jaw, Cramps in feet or legs, Lightheadedness, Pain/Pressure in shoulder, Diarrhea(Persistent), Memory Changes Suddenly, Questions/Concerns, Weight gain consecutive days, Dizziness/Fainting, Nausea/Vomiting, Shortness of Breath, Weight gain over 2 pounds If questions or concerns contact your physician Or seek help at emergency department. Activity Activity as Tolerated: Yes Driving Instructions: No Driving/Refer to Dr. Hendrix Discharge Diet: No Restrictions Diet After 24 Hours: Clear Liquid if Nauseous Symptoms to Report to Physicia: Lightheadedness, Memory Changes Suddenly Comment: You must do Neuro checks today. If Any Problems/Questions/Issu: Contact Your Physician, Go to Emergency Room Skin/Wound Care Infection Signs and Symptoms: Increased Swelling, Temperature Above 101 F Bathing Instructions: Shower Stitches/[place]/Dermabond Dis: Dermabond Ice Pack: Ice On and Off Site NORA PEREZ DO Jul 20, 2020 10:23
--- NOTE | 2020-07-23 09:26 | Physician Query-Final Dx ---
Final Diagnosis Give Final Diagnosis Please give Final Diagnosis HOPE PIERCE Jul 23, 2020 09:26
== END 2020-07-20 11:40 | disposition home or self-care (01) ==
LOC: EDUNIT# 23:23 → ER 23:29 → CSD 07-20 01:15
PROVIDERS: ADMIT Surgery; ATTEND Surgery
DX: S06.0X1A Concussion with loss of consciousness of 30 minutes or less, initial encounter (principal); R41.82 Altered mental status, unspecified; E87.6 Hypokalemia; T68.XXXA Hypothermia, initial encounter; F17.210 Nicotine dependence, cigarettes, uncomplicated; Z79.899 Other long term (current) drug therapy; F10.929 Alcohol use, unspecified with intoxication, unspecified; Z88.2 Allergy status to sulfonamides
CPT/HCPCS: 70450; 70486; 71045; 72125; 72170; 80053 ×2; 80306; 85025; 85610 ×2; 85730 ×2; 90471; 96361; 96374; 96375; 99284; G0378; G0480 ×2; 36415; 80320; 90715

== ENCOUNTER → 2021-04-03 | Outpatient (CLI) | payer BC, OTHER ==
--- NOTE | 2021-04-07 08:33 | Diagnostic Imaging Report ---
INDICATION: Routine screening. Comparison is made with prior mammogram 04/02/2020 and 01/05/2019. 2-D and 3-D bilateral screening mammography was performed with CAD. Bilateral breast implants again noted. Implant contours remain smooth. Both breasts are heterogeneously dense, limiting the sensitivity of mammography. Biopsy marker clip left breast is again noted. The parenchymal pattern is stable. There are benign calcifications are present. No mass or malignant-appearing microcalcifications are seen. Axillae are unremarkable. IMPRESSION: BI-RADS Category 2 No mammographic features suspicious for malignancy are identified. ACR BI-RADS Category 2: Benign findings. Result letter will be mailed to the patient. Note: At least 10% of breast cancer is not imaged by mammography. Dictated by: Dictated on workstation # [id number]
== END ==
LOC: RAD 15:00
PROVIDERS: ATTEND Surgery
DX: Z12.31 Encounter for screening mammogram for malignant neoplasm of breast (principal)
CPT/HCPCS: 77063; 77067

== ENCOUNTER 2022-01-21 07:40 | Outpatient (CLI) | payer BC, OTHER ==
[~2022-01-21] VITALS: Ht 172.7 cm; Wt 77.1 kg
[2022-01-21] MEDS ORDERED: CHOL20002 PO (13:27)
[2022-01-21] MEDS ORDERED: MAGN400C PO (13:27)
[2022-01-21] MEDS ORDERED: [UNRECOGNIZED DRUG - CODE] MC (13:27)
[2022-01-21] MEDS ORDERED: ROSU20TA2 PO (13:27)
[2022-01-21] MEDS ORDERED: CYAN250010 PO (13:27)
== END 2022-01-21 13:29 | disposition home or self-care (01) ==
LOC: PREOP 07:40
PROVIDERS: ATTEND Surgery
DX: Z01.818 Encounter for other preprocedural examination (principal)

== ENCOUNTER 2022-02-04 09:29 | Day surgery (SDC) | payer BC, OTHER ==
[~2022-02-04] VITALS: Ht 173 cm; Wt 77.1 kg
[~2022-02-04 09:29] MED LIST: CHOL20002 PO; CYAN250010 PO; MAGN400C PO; ROSU20TA2 PO; [UNRECOGNIZED DRUG - CODE] MC
[2022-02-04] MEDS ORDERED: LACTATED RINGERS 1,000 ML IV STA (09:37)
[2022-02-04] MEDS ORDERED: LIDOCAINE JELLY 2% 6 ML SYRINGE MM PRN (09:45)
[2022-02-04 09:50] VITALS: BP 124/77
--- NOTE | 2022-02-04 10:17 | Progress Note-Pre Operative ---
Pre-Operative Progress Note H&P Reviewed The H&P was reviewed, patient examined and no changes noted. Date Seen by Provider: Feb 04, 2022 Time Seen by Provider: 10:00 Date H&P Reviewed: Feb 04, 2022 Time H&P Reviewed: 10:00 Pre-Operative Diagnosis: screening o HADLEY CASTILLO MD Feb 04, 2022 10:17
--- NOTE | 2022-02-04 10:18 | Discharge Inst-Surgical ---
D/C Lap Instructions-JONATHAN Follow Up Activity as tolerated High Fiber Diet 25g or more per day Avoid Alcohol, Caffeine, Spicy [place] and Acid foods. Drink 64 fluid oz or more of fluids per day. Symptoms to Report: Fever over 101 degree F, Nausea/Vomiting If any problems/questions: Contact your physician or go to Emergency Room HADLEY CASTILLO MD Feb 04, 2022 10:18
[2022-02-04] MEDS ORDERED: ONDANSETRON 4 MG (ZOFRAN) ORAL DISSOLVE TAB PO PRN (10:30)
[2022-02-04] MEDS ORDERED: ONDANSETRON 4 MG/2 ML (SDV) Z0FRAN IVP PRN (10:30)
[2022-02-04] MEDS ORDERED: PROPOFOL INJECTION 50 ML IV ONE (11:11)
[2022-02-04] MEDS ORDERED: MIDAZOLAM 2 MG/2 ML (VERSED) VIAL ONE (11:11)
[2022-02-04 11:40] VITALS: BP 122/72
[2022-02-04 11:45] VITALS: BP 113/68
[2022-02-04 11:47] VITALS: BP 113/68
--- NOTE | 2022-02-04 11:54 | Progress Note-Post Operative ---
Post-Operative Progess Note Surgeon (s)/Glass Enamel Mixer (s) Surgeon HADLEY CASTILLO MD Glass Enamel Mixer: none Pre-Operative Diagnosis screening colo Post-Operative Diagnosis same Procedure & Operative Findings Date of Procedure 02/04/22 Procedure Performed/Findings colonoscopy with bx. Anesthesia Type mac Estimated Blood Loss Estimated blood loss (mL): minimal Specimens/Packing Specimens Removed desc colon polyp HADLEY CASTILLO MD Feb 04, 2022 11:54
[2022-02-04 12:05] VITALS: BP 123/80
--- NOTE | 2022-02-04 12:52 | Anesthesia-General Post-Op ---
MAC Patient Condition Mental Status/LOC: Same as Preop Cardiovascular: Satisfactory Nausea/Vomiting: Absent Respiratory: Satisfactory Pain: Controlled Complications: Absent Post Op Complications Complications None Follow Up Care/Instructions Patient Instructions None needed. Anesthesiology Discharge Order Discharge Order Patient is doing well, no complaints, stable vital signs, no apparent adverse anesthesia problems. No complications reported per nursing. ALVAREZ CEVALLOS CRNA Feb 04, 2022 12:52
--- NOTE | 2022-02-04 18:19 | OPERATIVE REPORT ---
DATE OF SERVICE: 02/04/2022 PREOPERATIVE DIAGNOSIS: Screening colonoscopy. POSTOPERATIVE DIAGNOSES: Mild chronic stage II external and internal hemorrhoids, small hyperplastic polyp of the descending colon, and mild proctitis. PROCEDURES PERFORMED: Colonoscopy with polypectomy with hot biopsy forceps. SURGEON: Hadley Castillo MD ANESTHESIA: Monitored anesthesia care. ESTIMATED BLOOD LOSS: Minimal. FINDINGS: Mild chronic stage II external and internal hemorrhoids, small hyperplastic polyp of the descending colon, and mild proctitis. DISPOSITION: The patient tolerated the procedure well. INDICATIONS FOR PROCEDURE: The patient is a 51-year-old female referred over to us for screening colonoscopy. She has not had a colonoscopy up to this point in her life. She states for the most part she is doing well, does not report any major issues with diarrhea nor constipation as well as no red blood per rectum nor any dark tarry stools. She also does not report any family history of colon cancer. DESCRIPTION OF PROCEDURE: The patient was brought to the endoscopy suite and laid in the left lateral decubitus position. After adequate IV pain and sedative medications and monitored anesthesia care, a digital rectal examination was performed. Mild chronic stage II external and internal hemorrhoids were identified, which were not actively edematous nor inflamed and no bleeding. Normal sphincter tone was felt and there were no palpable masses. The endoscope was then intubated into the anus and rectum gently insufflated. The endoscope was then advanced through the valves of George of the rectum with no polyps or any neoplasms identified. We then proceeded through the rectosigmoid area, where there was a very mild proctitis or colitis of unknown etiology. No diverticulosis identified. We then proceeded through the descending colon, where a small hyperplastic polyp was identified, which was biopsied and destroyed with forceps and electrocautery. The endoscope was then advanced and remainder of the descending, transverse and ascending colon to the cecum, which were normal. No other lesions identified. The endoscope was then slowly withdrawn while taking a second look and suctioning of residual air with no additional findings. The patient tolerated the procedure well. We will recommend medical management with high fiber diet with at least 25 grams of fiber daily as well as significant amounts of water to promote soft stools on a daily basis. If she is asymptomatic, she does not need another colonoscopy for another 10 years. Job ID: [id number] DocumentID: [id number] Dictated Date: 02/04/2022 11:43:14 Bobbin Drier Date: 02/04/2022 18:18:10 Dictated By: HADLEY CASTILLO MD
== END 2022-02-04 12:15 | disposition home or self-care (01) ==
LOC: ENDO 09:29
PROVIDERS: ATTEND Surgery
DX: Z12.11 Encounter for screening for malignant neoplasm of colon (principal); K63.5 Polyp of colon; K64.8 Other hemorrhoids; K64.1 Second degree hemorrhoids; K62.89 Other specified diseases of anus and rectum; Z87.891 Personal history of nicotine dependence
CPT/HCPCS: 84703

== ENCOUNTER → 2022-06-22 | Outpatient (CLI) | payer OTHER ==
--- NOTE | 2022-06-22 12:11 | Diagnostic Imaging Report ---
Indication: Routine screening. Comparison is made with prior mammogram 04/03/2021 and 04/02/2020. 2-D and 3-D bilateral screening mammography was performed with CAD. CAD is utilized. The current study was also evaluated with a Computer Aided Detection (CAD) system. Bilateral breast implants are again noted. Implant contours are smooth. Both breasts are heterogeneously dense, limiting the sensitivity of mammography. A marker clip in the inferior central left breast is again noted. There are benign calcifications in the right breast. No dominant mass or malignant-appearing microcalcifications are seen. Axillae are unremarkable. IMPRESSION: BI-RADS Category 2 No mammographic features suspicious for malignancy are identified. ACR BI-RADS Category 2: Benign findings. Result letter will be mailed to the patient. Note: At least 10% of breast cancer is not imaged by mammography. Dictated by: Dictated on workstation # [id number]
== END ==
LOC: RAD 10:00
PROVIDERS: ATTEND Surgery
DX: Z12.31 Encounter for screening mammogram for malignant neoplasm of breast (principal)
CPT/HCPCS: 77063; 77067

== ENCOUNTER → 2023-06-23 | Outpatient (CLI) | payer BC ==
--- NOTE | 2023-06-24 12:39 | Diagnostic Imaging Report ---
Indication: Routine screening Comparison is made with prior mammograms 06/22/2022 and 04/03/2021. 2-D and 3-D bilateral screening mammography was performed with CAD. Bilateral subpectoral breast implants are again noted. Implant contours remain smooth without evidence of extracapsular rupture. Both breasts are heterogeneously dense, limiting the sensitivity of mammography. A biopsy marker clip inferior left breast is again noted. Small nodular densities in the lower outer aspect of the right breast appears stable. No new mass is identified. No malignant-appearing microcalcifications are seen. Axillae are unremarkable. IMPRESSION: BI-RADS Category 2 No mammographic features suspicious for malignancy are identified. ACR BI-RADS Category 2: Benign findings. Result letter will be mailed to the patient. Note: At least 10% of breast cancer is not imaged by mammography. Dictated by: Dictated on workstation # [id number]
== END ==
LOC: RAD 15:30
PROVIDERS: ATTEND Nurse Practitioner
DX: Z12.31 Encounter for screening mammogram for malignant neoplasm of breast (principal)
CPT/HCPCS: 77063; 77067